=== PATIENT | male | born 1995 | race Caucasian/White ===

== ENCOUNTER 2018-09-11 21:22 | Emergency (ER) | payer SELFPAY ==
[2018-09-11] MEDS ORDERED: Aspirin 81 MG Tab.Chew PO ONE ×2 (21:43→21:50)
--- NOTE | 2018-09-11 21:43 | EDM.PDOC ---
ED HPI GENERAL MEDICAL PROBLEM - General Chief Complaint: Chest Pain Stated Complaint: PT HAS CHEST PAIN Time Seen by Provider: 09/11/18 21:26 - History of Present Illness INITIAL COMMENTS - FREE TEXT/NARRATIVE: HISTORY AND PHYSICAL: History of present illness: The patient is a healthy 23-year-old male who presents with a one-month history of random episodes of left-sided chest pain that occur sporadically and not a daily basis and last anywhere from a few hours to all day. Today his episode lasted about 5-6 hours and it was constant and nonradiating and it stopped about 3 hours ago. He says that he came in because in the past he has been using aspirin 325 mg and it is helping and it has not been working the last few days. He denies shortness of breath diaphoresis abdominal pain nausea or vomiting with the episodes but says that he sometimes feels lightheaded and that his heart is racing. He has not spoken to his primary care physician Dr. Montalvo about these issues. The patient smokes about 10 cigarettes a day but denies drug use and has a history of asthma but has no inhaler as he has not had any asthma related problems for many years. The patient says he does lifting for work but that is not new or different. He never has an episode that wakes him from sleep and aside from taking aspirin he tells me that when he gets an episode he tries to just relax to make it get better but he does not stop doing activities if he is in the middle of working or doing something. His eating and drinking normal and denies any leg pain or swelling. The patient has a family history of a father with heart problems but who has never had a heart catheter stent or open heart surgery. The patient is unaware of his cholesterol or lipid panel and has never had it checked. In the ED the patient is not experiencing any discomfort or symptomatology. When I asked him about the character of the pain he says that it is a stabbing pain in the left side of his chest without radiation. Review of systems: As per history of present illness and below otherwise all systems reviewed and negative. Past medical history: As per history of present illness and as reviewed below otherwise noncontributory. Surgical history: As per history of present illness and as reviewed below otherwise noncontributory. Social history: No reported history of drug or alcohol abuse. Family history: As per history of present illness and as reviewed below otherwise noncontributory. Physical exam: General: Well-developed well-nourished thin man who is nontoxic and vital signs are noted by me. HEENT: Atraumatic, normocephalic, , negative for conjunctival pallor or scleral icterus, mucous membranes moist, throat clear, neck supple, nontender, trachea midline. No thyromegaly or cervical adenopathy Lungs: Clear to auscultation, breath sounds equal bilaterally, chest wall With some minimal tenderness on palpation of the left anterior chest without defects or deformities but I cannot reproduce the pain exactly Heart: Normal S1 S2, regular rate and rhythm and no murmurs are appreciated Abdomen: Soft, nondistended, nontender. Negative for masses or hepatosplenomegaly. NABS Pelvis: Stable nontender. Genitourinary: Deferred. Rectal: Deferred. Extremities: Atraumatic, negative for cords or calf pain. Neurovascular unremarkable. no pedal edema or leg asymmetry Neuro: Awake, alert, oriented. Cranial nerves II through XII unremarkable. Cerebellum unremarkable. Motor and sensory unremarkable throughout. Exam nonfocal. Diagnostics: EKG chest x-ray CBC CMP troponin TSH Therapeutics: monitoring tech pulse ox aspirin 3 baby as he says to nursing that he has taken 1 at home earlier Patient was made aware of testing results and at the very beginning of our evaluation I did tell him that we would likely not be able to come to a conclusion about why he is having these episodes of chest pain for over a month and that he would need to follow-up with Dr. Montalvo in the clinic for further testing. I will again stressed the need for that and have him start a symptom journal so that all information regarding these episodes can be known by Dr. Montalvo. Advised him on reasons to return to the ED Impression: Episodic chest pain subacute stable Definitive disposition and diagnosis as appropriate pending reevaluation and review of above. - Related Data Allergies Allergy/AdvReac Type Severity Reaction Status Date / Time amoxicillin Allergy Hives Verified 09/11/18 21:27 erythromycin base Allergy Rash Verified 09/11/18 21:27 Home Meds: Home Meds . [No Known Home Meds] 09/11/18 [History] Past Medical History HEENT History: Reports: Impaired Vision Respiratory History: Reports: Asthma - Infectious Disease History Infectious Disease History: Reports: None Social & Family History - Family History Family Medical History: Noncontributory - Tobacco Use Smoking Status *Q: Current Every Day Smoker Years of Tobacco use: 1 Packs/Tins Daily: 10 - Caffeine Use Caffeine Use: Reports: Coffee - Recreational Drug Use Recreational Drug Use: No ED ROS GENERAL - Review of Systems Review Of Systems: ROS reveals no pertinent complaints other than HPI. ED EXAM, GENERAL - Physical Exam Exam: See Below (See dictation) Course - Vital Signs Last Recorded V/S: Last Vital Signs Temp 36.4 C 09/11/18 21:28 Pulse 78 09/11/18 22:21 Resp 18 09/11/18 22:21 BP 112/76 09/11/18 22:21 Pulse Ox 97 09/11/18 22:21 - Orders/Labs/Meds Orders: Active Orders 24 hr Category Date Time Status Cardiac Monitoring [RC] . DIRECTED Care 09/11/18 21:36 Active EKG Documentation Completion [RC] STAT Care 09/11/18 21:36 Active Pulse Oximetry [RC] ASDIRECTED Care 09/11/18 21:37 Active Labs: Laboratory Tests 09/11/18 09/11/18 Range/Units 21:51 21:51 WBC 5.89 (4.0-11.0) K/uL RBC 4.37 L (4.50-5.90) M/uL Hgb 13.8 (13.0-17.0) g/dL Hct 40.2 (38.0-50.0) % MCV 92.0 (80.0-98.0) fL MCH 31.6 (27.0-32.0) pg MCHC 34.3 (31.0-37.0) g/dL RDW Std Deviation 40.4 (28.0-62.0) fl RDW Coeff of Shruti 12 (11.0-15.0) % Plt Count 242 (150-400) K/uL MPV 9.00 (7.40-12.00) fL Neut % (Auto) 43.0 L (48.0-80.0) % Lymph % (Auto) 45.0 H (16.0-40.0) % [place] % (Auto) 8.3 (0.0-15.0) % Eos % (Auto) 2.5 (0.0-7.0) % Baso % (Auto) 1.2 (0.0-1.5) % Neut # (Auto) 2.5 (1.4-5.7) K/uL Lymph # (Auto) 2.7 H (0.6-2.4) K/uL [place] # (Auto) 0.5 (0.0-0.8) K/uL Eos # (Auto) 0.2 (0.0-0.7) K/uL Baso # (Auto) 0.1 (0.0-0.1) K/uL Nucleated RBC % 0.0 /100WBC Nucleated RBCs # 0 K/uL Sodium 138 (136-148) mmol/L Potassium 3.7 (3.5-5.1) mmol/L Chloride 104 (98-107) mmol/L Carbon Dioxide 25.7 (21.0-32.0) mmol/L BUN 6 L (7.0-18.0) mg/dL Creatinine 0.8 (0.8-1.3) mg/dL Est Cr Clr Drug Dosing 154.93 mL/min Estimated GFR (MDRD) > 60.0 ml/min Glucose 91 (74-106) mg/dL Calcium 9.0 (8.5-10.1) mg/dL Total Bilirubin 0.6 (0.2-1.0) mg/dL AST 27 (15-37) IU/L ALT 40 (14-63) IU/L Alkaline Phosphatase 72 (46-116) U/L Troponin I < 0.050 (0.000-0.056) ng/mL Total Protein 7.3 (6.4-8.2) g/dL Albumin 4.2 (3.4-5.0) g/dL Globulin 3.1 (2.6-4.0) g/dL Albumin/Globulin Ratio 1.4 (0.9-1.6) TSH 3rd Generation 0.97 (0.36-3.74) uIU/mL Meds: Medications Discontinued Medications Generic Name Dose Route Start Last Admin Trade Name Freq PRN Reason Stop Dose Admin Aspirin 324 mg 09/11/18 21:43 09/11/18 21:52 Aspirin PO 09/11/18 21:44 Not Given ONETIME ONE Aspirin 243 mg 09/11/18 21:50 09/11/18 21:52 Aspirin PO 09/11/18 21:51 243 mg ONETIME ONE Administration Departure - Departure Time of Disposition: 23:12 Disposition: Home, Self-Care 01 Condition: Good Clinical Impression: Atypical chest pain - Discharge Information Forms: ED Department Discharge Additional Instructions: The following information is given to patients seen in the emergency department who are being discharged to home. This information is to outline your options for follow-up care. We provide all patients seen in our emergency department with a follow-up referral. The need for follow-up, as well as the timing and circumstances, are variable depending upon the specifics of your emergency department visit. If you don't have a primary care physician on staff, we will provide you with a referral. We always advise you to contact your personal physician following an emergency department visit to inform them of the circumstance of the visit and for follow-up with them and/or the need for any referrals to a consulting specialist. The emergency department will also refer you to a specialist when appropriate. This referral assures that you have the opportunity for followup care with a specialist. All of these measure are taken in an effort to provide you with optimal care, which includes your followup. Under all circumstances we always encourage you to contact your private physician who remains a resource for coordinating your care. When calling for followup care, please make the office aware that this follow-up is from your recent emergency room visit. If for any reason you are refused follow-up, please contact the [facility] emergency department at and ask to speak to the emergency department charge nurse. [address] [place] [address] Push fluids and rest and try to start keeping a symptom journal of these events so as to help Dr. Montalvo in the clinic to decide what is the next steps in testing and evaluation. Return to ER as needed and as discussed it when these episodes happen use [id number] medication as you choose. - My Orders Last 24 Hours: My Active Orders 09/11/18 21:36 Cardiac Monitoring [RC] . DIRECTED EKG Documentation Completion [RC] STAT 09/11/18 21:37 Pulse Oximetry [RC] ASDIRECTED - Assessment/Plan Last 24 Hours: My Active Orders 09/11/18 21:36 Cardiac Monitoring [RC] . DIRECTED EKG Documentation Completion [RC] STAT 09/11/18 21:37 Pulse Oximetry [RC] ASDIRECTED
[2018-09-11 22:43] LABS: CHLORIDE,CL 104 mmol/L (98-107); SODIUM,NA 138 mmol/L (136-148)
--- NOTE | 2018-09-11 23:08 | CR ---
Indication: Chest pain Technique: Chest 2 views Comparison: None Findings: Cardiovascular and mediastinum: Heart size and vasculature are normal in caliber and appearance. Lungs and pleural spaces: Lungs are clear. No sign of infiltrate or mass. No sign of pleural effusion. No pneumothorax. Bones and soft tissues: No significant findings. Impression: No acute or significant findings. Dictated by Anatoly Calderón MD @ Sep 11 2018 11:06PM Signed by Dr. Anatoly Calderón @ Sep 11 2018 11:07PM
== END 2018-09-11 23:32 | disposition home or self-care (01) ==
LOC: MW.ED 21:22
DX: R07.89 Other chest pain (principal); F17.210 Nicotine dependence, cigarettes, uncomplicated; Z88.1 Allergy status to other antibiotic agents
CPT/HCPCS: 36415; 71046; 80053; 84443; 84484; 85025; 93005; 99285; A9270

== ENCOUNTER 2020-05-17 00:01 | Emergency (ER) | payer BC ==
--- NOTE | 2020-05-17 00:17 | EDM.PDOC ---
ED HPI GENERAL MEDICAL PROBLEM - General Stated Complaint: MENTAL HEALTH Time Seen by Provider: 05/17/20 00:05 Source of Information: Reports: Patient History Limitations: Reports: Altered Mental Status - History of Present Illness INITIAL COMMENTS - FREE TEXT/NARRATIVE: 24-year-old male unknown past medical history presents for abnormal behavior. History is from EMS, patient, patient's . Patient has been for roughly 2 years, but his just arrived to the [facility] to live with him 4 days ago. She is noted in the last couple of days that his behavior has been very erratic. He seems to make a lot of twitching motions with his face and arms. He seems to be delusional speaking about the Bible and God a lot. He has a crucifix that he carries around with him. He does endorse drinking alcohol occasionally with last drink in the last 3 days. He denies any drug abuse. He denies any psychiatric history however his states that something similar happened in [place] and that his mother might have more information. He denies taking any psychiatric medications. He denies any suicidal or homicidal ideation. He denies any hallucinations. I had a long discussion with patient's mother Cherelle. She does not have a clear understanding of patient's past medical history. She does note that he has been on psychiatric medicines before. She notes that when he was employed in [place] roughly 3 years ago he was hospitalized in a psychiatric hospital for roughly 2 weeks. She is uncertain of the diagnosis but thinks she remembers being told he was bipolar. He has not been on medications for several years. - Related Data Allergies Allergy/AdvReac Type Severity Reaction Status Date / Time amoxicillin Allergy Hives Verified 09/11/18 21:27 erythromycin base Allergy Rash Verified 09/11/18 21:27 Penicillins Allergy Rash Verified 05/17/20 00:11 Home Meds: Home Meds Ibuprofen mg PO ASDIRECTED 05/17/20 [History] Multivitamin 1 each PO DAILY 05/17/20 [History] Past Medical History HEENT History: Reports: Impaired Vision Respiratory History: Reports: Asthma - Infectious Disease History Infectious Disease History: Reports: None Social & Family History - Family History Family Medical History: No Pertinent Family History - Caffeine Use Caffeine Use: Reports: Coffee ED ROS GENERAL - Review of Systems Review Of Systems: Comprehensive ROS is negative, except as noted in HPI. ED EXAM, GENERAL - Physical Exam Exam: See Below Exam Limited By: No Limitations General Appearance: Alert, WD/WN, No Apparent Distress, Other (patient with rhythmic motion of lips, jaw, eyebrows, hands) Eye Exam: Bilateral Eye: EOMI, PERRL Throat/Mouth: Normal Voice, No Airway Compromise Head: Atraumatic, Normocephalic Neck: Normal Inspection, Supple, Non-Tender, Full Range of Motion Respiratory/Chest: No Respiratory Distress, Lungs Clear, Normal Breath Sounds, No Accessory Muscle Use Cardiovascular: Normal Peripheral Pulses, Tachycardia Extremities: Normal Inspection Neurological: Alert, Oriented Psychiatric: Normal Affect, Normal Mood Skin Exam: Warm, Dry, Intact, Normal Color #1 Interpretation EKG Date: 05/17/20 Time: 00:13 Rhythm: NSR Rate (Beats/Min): 121 Lilly: Normal P-Wave: Present QRS: Normal ST-T: Normal QT: Normal IL/PQ Interval: 147 Comparison: NA - No Prior EKG EKG Interpretation Comments: sinus tachycardia Course - Vital Signs Last Recorded V/S: Last Vital Signs Temp 98.7 F 05/17/20 00:17 Pulse 120 H 05/17/20 00:17 Resp 20 05/17/20 00:17 BP 152/93 H 05/17/20 00:17 Pulse Ox - Orders/Labs/Meds Orders: Active Orders 24 hr Category Date Time Status EKG Documentation Completion [RC] STAT Care 05/17/20 00:05 Active Labs: Laboratory Tests 05/17/20 05/17/20 05/17/20 Range/Units 00:31 00:31 00:31 WBC (4.0-11.0) K/uL RBC (4.50-5.90) M/uL Hgb (13.0-17.0) g/dL Hct (38.0-50.0) % MCV (80.0-98.0) fL MCH (27.0-32.0) pg MCHC (31.0-37.0) g/dL RDW Std Deviation (28.0-62.0) fl RDW Coeff of Shruti (11.0-15.0) % Plt Count (150-400) K/uL MPV (7.40-12.00) fL Neut % (Auto) (48.0-80.0) % Lymph % (Auto) (16.0-40.0) % [place] % (Auto) (0.0-15.0) % Eos % (Auto) (0.0-7.0) % Baso % (Auto) (0.0-1.5) % Neut # (Auto) (1.4-5.7) K/uL Lymph # (Auto) (0.6-2.4) K/uL Cecil # (Auto) (0.0-0.8) K/uL Eos # (Auto) (0.0-0.7) K/uL Baso # (Auto) (0.0-0.1) K/uL Sodium (136-148) mmol/L Potassium (3.5-5.1) mmol/L Chloride (98-107) mmol/L Carbon Dioxide (21.0-32.0) mmol/L BUN (7.0-18.0) mg/dL Creatinine (0.8-1.3) mg/dL Est Cr Clr Drug Dosing mL/min Estimated GFR (MDRD) ml/min Glucose (74-106) mg/dL Calcium (8.5-10.1) mg/dL Total Bilirubin (0.2-1.0) mg/dL AST (15-37) IU/L ALT (14-63) IU/L Alkaline Phosphatase (46-116) U/L Total Protein (6.4-8.2) g/dL Albumin (3.4-5.0) g/dL Globulin (2.6-4.0) g/dL Albumin/Globulin Ratio (0.9-1.6) TSH 3rd Generation (0.36-3.74) uIU/mL Urine Color YELLOW Urine Appearance CLEAR Urine pH 5.5 (5.0-8.0) Ur Specific Irene >= 1.030 (1.001-1.035) Urine Protein NEGATIVE (NEGATIVE) mg/dL Urine Glucose (UA) NEGATIVE (NEGATIVE) mg/dL Urine Ketones TRACE H (NEGATIVE) mg/dL Urine Occult Blood NEGATIVE (NEGATIVE) Urine Nitrite NEGATIVE (NEGATIVE) Urine Bilirubin NEGATIVE (NEGATIVE) Urine Urobilinogen 0.2 (<2.0) EU/dL Ur Leukocyte Esterase NEGATIVE (NEGATIVE) Salicylates (0-20) mg/dL Urine Opiates Screen NEGATIVE (NEGATIVE) Ur Oxycodone Screen NEGATIVE (NEGATIVE) Urine Methadone Screen NEGATIVE (NEGATIVE) Acetaminophen ug/mL Ur Barbiturates Screen NEGATIVE (NEGATIVE) Ur Phencyclidine Scrn NEGATIVE (NEGATIVE) Ur Amphetamine Screen NEGATIVE (NEGATIVE) U Methamphetamines Scrn NEGATIVE (NEGATIVE) U Benzodiazepines Scrn NEGATIVE (NEGATIVE) U Cocaine Metab Screen NEGATIVE (NEGATIVE) U Marijuana (THC) Screen NEGATIVE (NEGATIVE) Ethyl Alcohol mg/dL SARS-CoV-2 RNA (MAYE) NEGATIVE (NEGATIVE) 05/17/20 05/17/20 Range/Units 00:52 00:52 WBC 9.56 (4.0-11.0) K/uL RBC 4.61 (4.50-5.90) M/uL Hgb 14.6 (13.0-17.0) g/dL Hct 42.3 (38.0-50.0) % MCV 91.8 (80.0-98.0) fL MCH 31.7 (27.0-32.0) pg MCHC 34.5 (31.0-37.0) g/dL RDW Std Deviation 39.3 (28.0-62.0) fl RDW Coeff of Shruti 12 (11.0-15.0) % Plt Count 308 (150-400) K/uL MPV 9.10 (7.40-12.00) fL Neut % (Auto) 66.6 (48.0-80.0) % Lymph % (Auto) 21.0 (16.0-40.0) % [place] % (Auto) 11.0 (0.0-15.0) % Eos % (Auto) 0.8 (0.0-7.0) % Baso % (Auto) 0.6 (0.0-1.5) % Neut # (Auto) 6.4 H (1.4-5.7) K/uL Lymph # (Auto) 2.0 (0.6-2.4) K/uL [place] # (Auto) 1.1 H (0.0-0.8) K/uL Eos # (Auto) 0.1 (0.0-0.7) K/uL Baso # (Auto) 0.1 (0.0-0.1) K/uL Sodium 138 (136-148) mmol/L Potassium 3.4 L (3.5-5.1) mmol/L Chloride 100 (98-107) mmol/L Carbon Dioxide 24.2 (21.0-32.0) mmol/L BUN 7 (7.0-18.0) mg/dL Creatinine 0.9 (0.8-1.3) mg/dL Est Cr Clr Drug Dosing 124.38 mL/min Estimated GFR (MDRD) > 60.0 ml/min Glucose 149 H (74-106) mg/dL Calcium 9.0 (8.5-10.1) mg/dL Total Bilirubin 0.4 (0.2-1.0) mg/dL AST 31 (15-37) IU/L ALT 70 H (14-63) IU/L Alkaline Phosphatase 91 (46-116) U/L Total Protein 7.7 (6.4-8.2) g/dL Albumin 4.5 (3.4-5.0) g/dL Globulin 3.2 (2.6-4.0) g/dL Albumin/Globulin Ratio 1.4 (0.9-1.6) TSH 3rd Generation 1.21 (0.36-3.74) uIU/mL Urine Color Urine Appearance Urine pH (5.0-8.0) Ur Specific Irene (1.001-1.035) Urine Protein (NEGATIVE) mg/dL Urine Glucose (UA) (NEGATIVE) mg/dL Urine Ketones (NEGATIVE) mg/dL Urine Occult Blood (NEGATIVE) Urine Nitrite (NEGATIVE) Urine Bilirubin (NEGATIVE) Urine Urobilinogen (<2.0) EU/dL Ur Leukocyte Esterase (NEGATIVE) Salicylates 3.3 (0-20) mg/dL Urine Opiates Screen (NEGATIVE) Ur Oxycodone Screen (NEGATIVE) Urine Methadone Screen (NEGATIVE) Acetaminophen <2.0 ug/mL Ur Barbiturates Screen (NEGATIVE) Ur Phencyclidine Scrn (NEGATIVE) Ur Amphetamine Screen (NEGATIVE) U Methamphetamines Scrn (NEGATIVE) U Benzodiazepines Scrn (NEGATIVE) U Cocaine Metab Screen (NEGATIVE) U Marijuana (THC) Screen (NEGATIVE) Ethyl Alcohol < 3.0 mg/dL SARS-CoV-2 RNA (MAYE) (NEGATIVE) - Re-Assessments/Exams Free Text/Narrative Re-Assessment/Exam: 05/17/20 00:19 We will get medical clearance labs for psychiatric transfer. Patient appears to be suffering from delusional disorder likely secondary to untreated bipolar disorder or schizophrenia. I do not believe this is a safe discharge. 05/17/20 01:[address] Hernandez has accepted patient for transfer to psychiatry in [facility] Departure - Departure Time of Disposition: 01:42 Disposition: DC/Tfer to Psych Hosp/Unit 65 Condition: Good Clinical Impression: Bipolar disease, manic Qualifiers: Current episode severity: unspecified Qualified Code(s): F31.10 - Bipolar disorder, current episode manic without psychotic features, unspecified - Discharge Information Referrals: Landon Montalvo MD [Primary Care Provider] - Sepsis Event Note (ED) - Focused Exam Vital Signs: Vital Signs Temp Pulse Resp BP 05/17/20 00:17 98.7 F 120 H 20 152/93 H - My Orders Last 24 Hours: My Active Orders 05/17/20 00:05 EKG Documentation Completion [RC] STAT - Assessment/Plan Last 24 Hours: My Active Orders 05/17/20 00:05 EKG Documentation Completion [RC] STAT
[2020-05-17 01:28] LABS: ACETAMINOPHEN <2.0 ug/mL; BLOOD UREA NITROGEN,BUN 7 mg/dL (7.0-18.0); CARBON DIOXIDE,CO2 24.2 mmol/L (21.0-32.0); CHLORIDE,CL 100 mmol/L (98-107); GLUCOSE RANDOM 149 mg/dL (74-106); POTASSIUM,K 3.4 mmol/L (3.5-5.1); SODIUM,NA 138 mmol/L (136-148)
[2020-05-17] MEDS ORDERED: Haloperidol Lactate 5 MG/ML SDV IM ONE (02:12)
[2020-05-17] MEDS ORDERED: LORazepam 2 MG/ML SDV IM ONE (02:12)
== END 2020-05-17 02:28 ==
LOC: MW.ED 00:01
DX: F31.10 Bipolar disorder, current episode manic without psychotic features, unspecified (principal); J45.909 Unspecified asthma, uncomplicated; Z20.822 Contact with and (suspected) exposure to COVID-19; Z88.0 Allergy status to penicillin; Z88.1 Allergy status to other antibiotic agents
CPT/HCPCS: 36415; 80053; 80143; 80179; 80305; 80307; 81003; 84443; 85025; 87635; 93005; 96372; 99285; J1630; J2060; 93010; 99284; U0002